=== PATIENT | male | born 1935 | race African-American/Black ===

== ENCOUNTER 2016-08-30 17:16 | Emergency (ER) | payer MEDICARE, OTHER ==
--- NOTE | ~2016-08-30 | EKG ---
PATIENT: SLICK ESTEVES UNIT #: [id number] Ventricular Rate: 68 BPM Atrial Rate: 68 BPM P-R Interval: 142 ms QRS Duration: 74 ms Q-T Interval: 404 ms QTC Calculation(Bezet): 429 ms P [place]: 61 degrees Calculated R [place]: 51 degrees Calculated T [place]: 72 degrees Diagnosis Line: Sinus rhythm with marked sinus arrhythmia Diagnosis Line: Possible Left atrial enlargement Diagnosis Line: Septal infarct , age undetermined Diagnosis Line: Abnormal ECG Diagnosis Line: When compared with ECG of 06-FEB-2016 18:37, Diagnosis Line: No significant change was found Diagnosis Line: Confirmed by KEVIN POLK MD ([id number]) on Diagnosis Line: 10/12/2016 4:10:32 PM INTERPRETING MD: CRISTINA
--- NOTE | ~2016-08-30 | CR72 ---
[facility] A Service of [facility] RADIOLOGY TEXT RESULTS PATIENT: SLICK ESTEVES SR LOCATION: SED : 34 UNIT #: [id number] AGE: [address]: Neftali Stoner DO SEX: M ORDER DR: [id number] [place] [id number] E MR#: [id number] Acc #: [id number] NAME: SLICK ESTEVES SR : 1935 SEX: M STUDY DATE/TIME: 08/30/2016 17:02 UNIT: SED ROOM: STUDY DESCRIPTION: CR Chest Single View Portable Attending Physician: Neftali Stoner Ordering Physician: Tenzin Joy Primary Care Physician: Vickie Umana M.D. MEDICAL IMAGING REPORT This report is preliminary unless electronic signature is present. EXAM Portable chest x-ray 08/30/2016 HISTORY Chest pain. Left chest pain, left shoulder pain began today. TECHNIQUE AP radiograph of chest presented COMPARISON 12/18/2011 FINDINGS The heart is normal in size. Thoracic aorta is tortuous. No change in appearance. Lungs are well inflated. There is no evidence of acute infectious or inflammatory disease. No pleural effusion or pneumothorax. No suspicious nodule. Bony structures unremarkable. Dictated by... Reg Fay M.D. THIS IS AN ELECTRONICALLY VERIFIED REPORT Reg Fay M.D. at 09/01/2016 4:24 PM LEEK/marcella TD: 08/31/2016 10:59 JOB #: [id number] [facility] A Service of [facility] RADIOLOGY TEXT RESULTS PATIENT: SLICK ESTEVES SR LOCATION: SED : 34 UNIT #: [id number] AGE: [address]: Neftali Stoner DO SEX: M ORDER DR: MEDICAL IMAGING REPORT
[~2016-08-30 17:16] MED LIST: AMITIZA8 MCG PO; ANTIVERT PO; ASPIRIN; ASPIRIN81 M2 PO; BAYER CHEWABLE81 MG PO; CLARITIN10 M3 PO; FERRO-TIME325 MG PO; FLOMAX0.4 M1 PO; FLOVENT DISKU250 MCG INH; GLUCOPHAGE500 M1 PO; GLUCOPHAGE500 MG PO; IMDUR-ER30 MG PO; IMDUR30 MG PO; LIPITOR20 MG PO; LISINOPRIL10 MG PO; MEDI-MECLIZINE25 M1 PO; MULTI-DAY VITAM1 TAB PO; MULTI-VIT/MIN P1 TAB; NEURONTIN300 MG PO; NORCO 10-325 TA1 TAB PO; NORVASC PO; PHENERGAN25 MG PO; PLAVIX PO; POLYSACC IRON150 MG PO; PREVIDENT 500051 GM DT; PREVIDENT56 G1 TOP; PRILOSEC20 M1 PO; PRINIVIL10 MG PO; PROTONIX PO; PROTONIX40 MG/BLIS PO; VOLTAREN75 MG PO; ZOCOR
[2016-08-30 17:57] LABS: BASOPHIL# 0.1 X10e3 (0-0.3); BASOPHIL% 0.9 % (0-2.5); EOSINOPHIL# 0.4 X10e3 (0-0.7); EOSINOPHIL% 7.5 % (0.0-7.0); HEMATOCRIT 44.2 % (38.0-50.0); HEMOGLOBIN 14.7 gm/dL (13.0-16.0); LYMPHOCYTE# 0.9 X10e3 (1.0-3.5); LYMPHOCYTE% 15.1 % (17.0-45.0); MEAN CELL VOLUME 94.4 FL (83-96); MEAN CORPUSCULAR HEMOGLOBIN 31.3 PG (28-34); MEAN CORPUSCULAR HGB CONC 33.2 g/dL (30-36); MEAN PLATELET VOLUME 8.3 FL (6.5-11.5); MONOCYTE# 0.5 X10e3 (0-1.0); MONOCYTE% 9.4 % (3.0-12.0); NEUTROPHIL# 3.9 X10e3 (1.5-7.1); NEUTROPHIL% 67.1 % (40-75); PLATELET COUNT 241 X10e3 (140-420); RED BLOOD COUNT 4.69 X10e (3.90-5.60); RED CELL DISTRIBUTION WIDTH 14.1 % (11.0-15.5); WHITE BLOOD COUNT 5.8 X10e3 (4.0-10.5)
[2016-08-30 18:00] LABS: DIFF IND NO
[2016-08-30 18:02] LABS: POC - CKMB 2.5 ng/mL (0.0-7.9); POC - TROPONIN <0.05 ng/mL (<=0.05)
[2016-08-30 18:06] LABS: PROTHROMBIN TIME (PATIENT) 11.1 SECONDS (9.5-12.4)
[2016-08-30 18:16] LABS: ALBUMIN SERUM 4.2 g/dL (3.5-5.0); ALKALINE PHOSPHATASE 109 U/L (32-92); ALT (SGPT) 24 U/L (10-40); AST (SGOT) 24 U/L (10-42); BILIRUBIN, DIRECT 0.1 mg/dL (0.0-0.2); BILIRUBIN,INDIRECT 0.3 mg/dL (0.0-0.9); BILIRUBIN,TOTAL 0.4 mg/dL (0.2-2.0); BLOOD UREA NITROGEN 18 mg/dL (9-23); BUN/CREATININE RATIO 16.36; CALCIUM SERUM 9.4 mg/dL (8.4-10.2); CARBON DIOXIDE 26 mmol/L (22-31); CHLORIDE 100 mmol/L (100-111); CREATININE SERUM 1.1 mg/dL (0.6-1.4); GLOM FILT RATE Estimated ABOVE60 mL/min (>60); GLUCOSE FASTING 86 mg/dL (70-110); LIPASE 36 U/L (22-51); PROTEIN TOTAL SERUM 7.7 g/dL (6.0-8.3); SODIUM 136 mmol/L (135-145)
[2016-08-30 19:40] LABS: POC - CKMB 1.8 ng/mL (0.0-7.9); POC - MYOGLOBIN 87.6 ng/mL (0.0-169.0); POC - TROPONIN <0.05 ng/mL (<=0.05)
== END 2016-08-31 00:37 | disposition hospice, home (50) ==
LOC: SED 17:16
PROVIDERS: Emergency Medicine
DX: R07.89 Other chest pain (principal); E78.5 Hyperlipidemia, unspecified; I10 Essential (primary) hypertension; Z88.8 Allergy status to other drugs, medicaments and biological substances; Z79.899 Other long term (current) drug therapy
CPT/HCPCS: 36415; 71010; 80048; 80076; 82553; 83690; 83874; 84484; 85025; 85610; 85730; 93005; 99285